=== PATIENT | male | born 1980 | race Caucasian/White ===

== ENCOUNTER 2019-09-05 20:20 | Observation (INO) | payer BC, SELFPAY ==
[2019-09-05 20:21] VITALS: BP 126/76; PULSE 76; RESP 16; TEMP 36.9; O2SAT 94; BMI 39.4
--- NOTE | 2019-09-05 20:50 | CT_ITS ---
HISTORY: SEVERE BACK PAIN AND SPASMS AFTER HEARING A POP ADDITIONAL HISTORY: None provided COMPARISON: None TECHNIQUE: Axial, coronal and sagittal noncontrast CT images of the lumbar spine. 2D reconstructions were reviewed to aid in evaluation of the lumbar spine. A radiation dose optimization technique was utilized for this scan. Number of images including paperwork: [id number] FINDINGS: BONES: No acute fracture. Spondylolysis is noted at L5 on the right with some sclerosis in this region on the left suggesting the possibility of a healed defect. Bifid spinous process of L5 also noted. No suspicious bone lesion. VERTEBRAL ALIGNMENT: No traumatic subluxation. DISCS AND JOINTS: Mild to space narrowing at L5-S1. Mild disc bulging noted at L3-4, L4-5 and L5-S1. Facet arthropathy and some ligamentous hypertrophy is noted. SPINAL CANAL AND FORAMINA: Moderate central canal stenosis at L4-5. SOFT TISSUES: No paraspinous soft tissue swelling. VISUALIZED CHEST AND/OR ABDOMEN: Unremarkable. CT/Spine Lumbar without Contrast IMPRESSION: 1. No acute osseous abnormality. 2. L5 spondylolysis without significant spondylolisthesis. 3. Lumbar spondylosis with spinal stenosis at L4-5. MRI could better evaluate spinal soft tissues if clinically warranted. Individualized dose optimization techniques were used for this CT. at 2234 Reported and signed by: Debbie Guzmán MD Electronically Signed: Debbie Guzmán MD at 22:34 EST Tel , Service support ,
[2019-09-05 20:59] VITALS: BP 138/95; PULSE 70; RESP 16; O2SAT 95
[2019-09-05 21:29] LABS: Absolute Lymphocyte Count 3.15 X10^3/uL (0.83-4.51); Absolute Neutrophil Count 6.7 X10^3/uL (2.0-7.7); Basophil# 0.05 X10^3/uL; Basophil% 0.5 % (0-1); Eosinophil# 0.07 X10^3/uL; Eosinophils% 0.6 % (0-5); Hematocrit 41.4 % (40-54); Hemoglobin 13.8 g/dL (13.0-16.5); Lymphocyte # 3.15 X10^3/ul (4.0); Lymphocyte % 29.1 % (19-41); Mean Corp Hgb Conc 33.3 g/dL (32-36); Monocyte# 0.84 X10^3/uL; Monocyte% 7.7 % (0-10); NRBC Flagged by Analyzer 0 % (0-5); Neutrophil # 6.69 X10^3/uL (2.7-7.7); Neutrophil % 61.7 % (47-70); Platelet Count 319 K/mm3 (150-450); RBC Distribution Width CV 12.7 % (11.6-14.6); RBC Distribution Width SD 41.9 fl (35.1-43.9); White Blood Count 10.8 K/mm3 (4.4-11.0)
[2019-09-05 21:39] LABS: Anion Gap 5 (5-15); BUN 16 mg/dL (7-18); BUN/Creat Ratio 14.7 RATIO (10-20); Calcium,Total 9.5 mg/dL (8.5-10.1); Chloride 105 mmol/L (98-107); Creatinine, Serum 1.09 mg/dL (0.70-1.30); EST Glomerular Filtration Rate 80 mL/min (>60); Est Glom Filt Rate - Afr Amer 96 mL/min (>60); Estimated Creatinine Clearance 93.95 ml/min; Glucose 95 mg/dL (74-106); Sodium Level 140 mmol/L (136-145)
[2019-09-05] MEDS: diazePAM 5 MG Tablet PO (22:19)
[2019-09-05] MEDS: HYDROmorphone 1 MG/ML Syringe IV (22:19)
--- NOTE | 2019-09-05 22:59 | PCM.HP.STD ---
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 He also notes transient RLE radicular pain. Work-up in the ED included T 98.5, heart rate 76, BP 126/79, respiratory rate 16, 94% on room air, unremarkable CBC, unremarkable BMP, lumbar spine CT with no acute osseous abnormality with L5 spondylosis without significant spondylolisthesis, lumbar spondylosis with spinal stenosis at L4-L5. In the ED patient administered Valium 5 mg p.o. x1 as well as Dilaudid 1 mg IV x1. Past Medical History Past Medical History (Chronic Problems): Chronic Problems AAA (abdominal aortic aneurysm) (Chronic) Obesity (BMI 30-39.9) (Chronic) Hypertension (Chronic) Former tobacco use (Chronic) Allergies No Known Allergies Allergy (Verified 09/05/19 20:26) Home Medications: Ambulatory Orders Medication Instructions Recorded Clopidogrel Bisulfate [Clopidogrel] 75 mg DAILY 09/05/19 Losartan Potassium 50 mg DAILY 09/05/19 Surgical History: - - Mcneil teeth extraction. Psychiatric History: No pertinent psych hx Lives: Spouse/ Significant Other Smoking Status: Former smoker - Patient quit cigarette tobacco usage approximately 2 years prior to current presentation, prior to this 1/2 pack/day cigarette tobacco usage. Tobacco Use: Non-smoker Alcohol: Occasional Drugs: None - *Family History Maternal History Items: - - Patient denies any market maternal or paternal family history including heart disease, diabetes or cancer and notes that they do not take any medications. Paternal History Items: - - Patient denies any market maternal or paternal family history including heart disease, diabetes or cancer and notes that they do not take any medications. He does admit that his father is an alcoholic. Review of Systems Constitutional: Reports: Anorexia, Malaise, Weakness, Fatigue. Denies: Chills, Fever, Weight Change HEENT: Denies: Head Aches, Sinus Congestion, Sinus Drainage Cardiovascular: Denies: Chest Pain, Palpitations Respiratory: Denies: Cough, Shortness of breath at rest, Sputum production Gastrointestinal: Denies: Abdominal Pain, Nausea, Vomiting Genitourinary: Denies: Dysuria Musculoskeletal: Reports: Back Pain, Joint Pain, Leg Pain. Denies: Joint Tenderness Skin: Denies: Rash, Wounds Neurological: Denies: Numbness, Tingling, Focal weakness Psychiatric: Denies: Anxiety, Depression, Homicidal Ideations, Suicidal Ideations Hematologic/ Lymphatic: Denies: Easy Bruising, Easy Bleeding VTE Information - Inpt Only VTE Present on Admission: No VTE Mechan Device Prophylaxis: SCD's VTE Pharm Prophylaxis ordered?: Yes Patient Problems: Active and Suspected Problems Intractable low back pain (Acute) Subjective: Laying in the ED bed, uncomfortable, periods of spasms with acute 10 of 10 severe pain. Objective: Physical Examination: General: awake, alert, oriented x 3 and cooperative, laying in the ED bed, intermittent periods of severe paraspinous lumbar spasms and pain. Skin: normal color, turgor, no icterus, cyanosis. HEENT: AT/NC, EOMI, PERRLA, mildly dry MM, no carotid bruits or JVD noted. Lungs: CTA bilaterally, moderate effort, mild decrease BL bases, no rales, ronchi or wheezing. Heart: Regular rate and rhythm; no gallop, rub audible. Abdomen: soft, obese, NTTP, ND, normal BS, no HSM. Extremities: no cyanosis, clubbing, or edema, discomfort with palpation of the paraspinous and especially right sacroiliac region, difficulty even performing straight leg raise secondary to discomfort. Neurological: patient awake, alert, oriented x 3; cognitive function intact; pupils equally reactive to light and accomodation; cranial nerves II-XII grossly normal, moving all 4 extremities although extremely limited secondary to severe lumbar region discomfort, no pain with palpation of the spine, primarily paraspinous and notably right greater than left sacroiliac region, strength severely globally Liv secondary to acute pain. Psychiatric: affect appears strange, uncomfortable, no acute evidence of depressive or anxiety feelings. - Physical Exam Vitals/I&O's: Vital Signs Temp Pulse Resp BP Pulse Ox 98.5 F 70 16 138/95 H 95 09/05/19 20:21 09/05/19 20:59 09/05/19 20:59 09/05/19 20:59 09/05/19 20:59 Oxygen Delivery Method Room Air Weight: 275 lb 5.718 oz Body Mass Index (BMI) 39.4 Laboratory Results 09/05/19 21:10: WBC 10.8, RBC 4.60, Hgb 13.8, Hct 41.4, MCV 90.0, MCH 30.0, MCHC 33.3, RDW Std Deviation 41.9, RDW Coeff of Jorge 12.7, Plt Count 319, MPV 9.0, Immature Gran % (Auto) 0.400, Neut % (Auto) 61.7, Lymph % (Auto) 29.1, [place] % (Auto) 7.7, Eos % (Auto) 0.6, Baso % (Auto) 0.5, Absolute Neuts (auto) 6.7, Absolute Lymphs (auto) 3.15, Nucleated RBC % 0 09/05/19 21:10: Sodium 140, Potassium 4.0, Chloride 105, Carbon Dioxide 30.0, Anion Gap 5, BUN 16, Creatinine 1.09, Estim Creat Clear Calc 93.95, Est GFR (MDRD) Af Amer 96, Est GFR (MDRD) Non-Af 80, BUN/Creatinine Ratio 14.7, Glucose 95, Calcium 9.5 Assessment/Plan All Active Problems Intractable low back pain (Acute) The patient is a 38 y/o M w/ PMHx: Obesity, HTN, 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 1. Acute Intractable Back Pain on chronic: Will admit to MS, maintain on fall precautions, frequent positioning, po/IV pain regimen, initiate medrol dose pack, zanaflex, gabapentin TID with hold for sedation, toradol x 5 scheduled doses, anti-emetics, bowel regimen. Will consult PT and OT for evaluation. If ongoing intractable pain may consider MRI. 2. 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 Not on statin, defer to outpatient. 3. Hypertension: Continue home regimen including lisinopril once regimen clarified, PRN hydralazine. 4. Obesity: Weight loss and lifestyle changes encouraged. 5. Former tobacco use: Encouraged continued tobacco cessation. 6. DVT Prophylaxis: SCDS, lovenox given immobility. Code Visit Inpatient E&M: 87411 Init Hosp L2
[2019-09-05 23:00] VITALS: BP 134/99; PULSE 85; RESP 16; O2SAT 95
--- NOTE | 2019-09-05 23:00 | ED.DCSUM_ITS ---
- ER Visit Summary Date of Service: 09/05/19 Chief Complaint: Back pain History of Present Illness: The patient is a 38 M [presents to the ER with complaint of back pain that started prior to arrival in the emergency department. Patient states that he just purchased a new snowmobile and was working on a carburetor. Patient was standing kind of bent over and had sudden onset of severe excruciating pain in his low back. Patient states that he felt a pop in his back. Initially he felt like he had some discomfort into his right leg. But that seems to have mostly resolved. Patient fell to the ground and was unable to get up afterwards. EMS had to bring him in. 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 Patient denies any weakness in extremities. He denies any paresthesias currently. He describes intermittent severe spasms. He denies any abdominal pain. Patient does not have a history of herniated disks. He is not had any back surgeries.] Physical Examination: [HEENT-PERRLA, EOMI. Cranial nerves II through XII grossly intact. TMs clear. Mucous membranes moist. No adenopathy. Cardiovascular-regular rate and rhythm without murmur or ectopy Lungs-clear to auscultation, chest wall stable without crepitus or subcu emphysema Abdomen-normoactive bowel sounds, soft, nontender, no rebound or rigidity, no peritoneal signs. Back exam-patient has tenderness palpation over the lower lumbar spine in the midline. Patient has some mild diffuse tenderness over the paraspinal musculature in the lumbar spine. Patient has negative straight leg raises. Deep tendon reflexes are plus 2 out of 4 bilaterally at the patella and Achilles. Patient has normal 5 extension. Extremities-intact ?4, normal range of motion, normal pulses, atraumatic] Test Results: [Patient has CBC with differential that was normal. Chemistries unremarkable. CT scan of the lumbar spine showed lumbar spondylosis with spinal stenosis at L4-5. No fractures noted.] Emergency Department Course and Treatment: [Patient had received 100 mcg of fentanyl by EMS on arrival. Patient eventually required a milligram of Dilaudid and Valium 5 mg. He continues to complain of severe pain with movement and he is unable to ambulate at this time because of the pain in his low back.] Treatment Plan: [Admit for pain management and possible further imaging such as MRI if symptoms do not improve.] Disposition: [Admit] Impression: [Intractable back pain] This note was generated with [employer] dictation software. It may contain incorrect words, spelling, and punctuation that were not noted in review of the chart prior to signing ED Disposition - Plan for ED Patient: Referrals: Anton Hilton Chi, MD [Primary Care Provider] -
[2019-09-05] MEDS: HYDROmorphone 0.5 MG/0.5 ML SYRINGE IV (23:39)
[2019-09-06 00:08] VITALS: BP 128/84; PULSE 76; RESP 16; O2SAT 95
[2019-09-06 00:29] VITALS: BMI 35.0
[2019-09-06 00:36] VITALS: BP 122/74; PULSE 77; RESP 16; TEMP 37; O2SAT 95
[2019-09-06 00:49] VITALS: BMI 35.0
[2019-09-06] MEDS: 0.9% Saline Lock 10 ML Syringe IV (01:20)
[2019-09-06] MEDS: 0.9% Normal Saline 1,000 ML 100 ML IV ×2 (01:21→12:09)
[2019-09-06] MEDS: Clopidogrel Bisulfate 75 MG Tablet PO ×2 (01:24→10:59)
[2019-09-06] MEDS: Gabapentin 100 MG Capsule PO ×3 (01:24→11:05)
[2019-09-06] MEDS: tiZANidine HCl 2 MG Tablet PO ×3 (01:24→15:25)
[2019-09-06] MEDS: Losartan Potassium 50 MG Tablet PO ×2 (01:24→11:00)
[2019-09-06] MEDS: Pantoprazole Sodium 20 MG Tablet PO ×2 (01:24→10:58)
[2019-09-06] MEDS: Ketorolac 30 MG/ML Syringe IV ×3 (01:25→15:24)
[2019-09-06 06:19] VITALS: BP 110/63; PULSE 68; RESP 16; TEMP 36.4; O2SAT 96
[2019-09-06 07:01] LABS: Absolute Lymphocyte Count 3.67 X10^3/uL (0.83-4.51); Absolute Neutrophil Count 4.1 X10^3/uL (2.0-7.7); Basophil# 0.05 X10^3/uL; Basophil% 0.6 % (0-1); Eosinophil# 0.13 X10^3/uL; Eosinophils% 1.5 % (0-5); Hematocrit 40.3 % (40-54); Hemoglobin 13.3 g/dL (13.0-16.5); Lymphocyte # 3.67 X10^3/ul (4.0); Lymphocyte % 41.6 % (19-41); Mean Corpuscular Hgb 29.8 pg (27.0-32.0); Mean Corpuscular Volume 90.4 fL (80-94); Mean Platelet Vol. 9.3 fl (6.2-12.0); Monocyte# 0.81 X10^3/uL; Monocyte% 9.2 % (0-10); NRBC Flagged by Analyzer 0 % (0-5); Neutrophil # 4.14 X10^3/uL (2.7-7.7); Neutrophil % 46.8 % (47-70); Platelet Count 322 K/mm3 (150-450); RBC Distribution Width CV 12.8 % (11.6-14.6); Red Blood Count 4.46 M/mm3 (4.6-6.2); White Blood Count 8.8 K/mm3 (4.4-11.0)
[2019-09-06 07:17] LABS: Anion Gap 5 (5-15); BUN 15 mg/dL (7-18); BUN/Creat Ratio 14.4 RATIO (10-20); Calcium,Total 8.7 mg/dL (8.5-10.1); Chloride 105 mmol/L (98-107); Creatinine, Serum 1.04 mg/dL (0.70-1.30); EST Glomerular Filtration Rate 84 mL/min (>60); Est Glom Filt Rate - Afr Amer 102 mL/min (>60); Estimated Creatinine Clearance 101.57 ml/min; Glucose 101 mg/dL (74-106); Potassium 3.4 mmol/L (3.5-5.1); Sodium Level 139 mmol/L (136-145)
[2019-09-06] MEDS: MethylPREDNISolone DosePak 4 MG BOX PO ×2 (07:48→11:05)
[2019-09-06 07:55] VITALS: BP 131/82; PULSE 64; RESP 16; TEMP 36.5; O2SAT 97
--- NOTE | 2019-09-06 07:58 | PCM.PN.HOSP ---
Patient Problems: Active and Suspected Problems Intractable low back pain (Acute) Reason for Visit: Follow-up intractable back pain Subjective: Patient is a 38-year-old gentleman with a BMI of 35 with a history of chronic back pain presented with worsening pain Objective: GENERAL: cooperative appears to be in some distress HEENT: Atraumatic; EYES; Anicteric, Normal Conjunctiva NECK; supple, normal thyroid, RESPIRATORY: Diminished to auscultation CARDIOVASCULAR: Regular S1 S2, GI: soft, normoactive bowel sounds, : No Renal angle tenderness; EXTREMITIES: No edema, no clubbing, NEURO: Awake; no lateralizing signs. SKIN: No Rash PSYCH; Flat affect Vitals/I&O's: Vital Signs Temp Pulse Resp BP Pulse Ox 97.7 F L 64 16 131/82 H 97 09/06/19 07:55 09/06/19 07:55 09/06/19 07:55 09/06/19 07:55 09/06/19 07:55 Oxygen Delivery Method Room Air Weight: 113.9 kg Body Mass Index (BMI) 35.0 Intake and Output for Last 24 Hours 09/04/19 09/05/19 09/06/19 23:59 23:59 23:59 Intake Total 300 / 300 Balance 300 / 300 Laboratory Results 09/05/19 21:10: WBC 10.8, RBC 4.60, Hgb 13.8, Hct 41.4, MCV 90.0, MCH 30.0, MCHC 33.3, RDW Std Deviation 41.9, RDW Coeff of Jorge 12.7, Plt Count 319, MPV 9.0, Immature Gran % (Auto) 0.400, Neut % (Auto) 61.7, Lymph % (Auto) 29.1, [place] % (Auto) 7.7, Eos % (Auto) 0.6, Baso % (Auto) 0.5, Absolute Neuts (auto) 6.7, Absolute Lymphs (auto) 3.15, Nucleated RBC % 0 09/05/19 21:10: Sodium 140, Potassium 4.0, Chloride 105, Carbon Dioxide 30.0, Anion Gap 5, BUN 16, Creatinine 1.09, Estim Creat Clear Calc 93.95, Est GFR (MDRD) Af Amer 96, Est GFR (MDRD) Non-Af 80, BUN/Creatinine Ratio 14.7, Glucose 95, Calcium 9.5 09/06/19 05:45: WBC 8.8, RBC 4.46 L, Hgb 13.3, Hct 40.3, MCV 90.4, MCH 29.8, MCHC 33.0, RDW Std Deviation 42.0, RDW Coeff of Jorge 12.8, Plt Count 322, MPV 9.3, Immature Gran % (Auto) 0.300, Neut % (Auto) 46.8 L, Lymph % (Auto) 41.6 H, [place] % (Auto) 9.2, Eos % (Auto) 1.5, Baso % (Auto) 0.6, Absolute Neuts (auto) 4.1, Absolute Lymphs (auto) 3.67, Nucleated RBC % 0 09/06/19 05:45: Sodium 139, Potassium 3.4 L, Chloride 105, Carbon Dioxide 29.0, Anion Gap 5, BUN 15, Creatinine 1.04, Estim Creat Clear Calc 101.57, Est GFR (MDRD) Af Amer 102, Est GFR (MDRD) Non-Af 84, BUN/Creatinine Ratio 14.4, Glucose 101, Calcium 8.7 Current Medications Acetaminophen (Tylenol) 650 mg PO Q6H PRN PRN PRN Reason: Pain Score 1-3/Temp > 100.7 F Al Hydroxide/Mg Hydroxide (Mylanta Ii) 30 ml PO Q6H PRN PRN PRN Reason: Gastric Burning Albuterol Sulfate (Ventolin Aerosols) 2.5 mg INHALATION Q2H PRN PRN PRN Reason: Shortness of Breath/Wheezing Clopidogrel Bisulfate (Plavix) 75 mg PO DAILY [facility] Last Admin: 09/06/19 01:24 Dose: 75 mg Documented by: Dextrose (D50w Syringe) 0 gm IV X1 PRN; Protocol PRN Reason: Hypoglycemia Enoxaparin Sodium (Lovenox) 40 mg SC DAILY [facility] Gabapentin (Neurontin) 100 mg PO TIDCM [facility] Last Admin: 09/06/19 07:48 Dose: 100 mg Documented by: Glucagon () 1 mg IM .X1 PRN PRN Reason: Hypoglycemia Guaifenesin (Robitussin) 20 ml PO Q4H PRN PRN PRN Reason: COUGH Hydromorphone HCl (Dilaudid Inj) 1 mg IV Q4H PRN PRN PRN Reason: Pain Score 6-10/10 Sodium Chloride () 1,000 mls @ 100 mls/hr IV .Q10H [facility] Last Admin: 09/06/19 01:21 Dose: 100 mls/hr Documented by: Ketorolac Tromethamine (Toradol) 30 mg IV Q8 [facility] Stop: 09/07/19 06:01 Last Admin: 09/06/19 06:20 Dose: 30 mg Documented by: Losartan Potassium (Cozaar) 50 mg PO DAILY [facility] Last Admin: 09/06/19 01:24 Dose: 50 mg Documented by: Magnesium Hydroxide (Milk Of Magnesia) 30 ml PO DAILY PRN PRN PRN Reason: Constipation Methylprednisolone (Medrol Dosepak) 8 mg PO 0800 [facility]; Taper Stop: 09/11/19 08:59 Last Admin: 09/06/19 07:48 Dose: 8 mg Documented by: Ondansetron HCl (Zofran) 4 mg IV Q8H PRN PRN PRN Reason: NAUSEA/VOMITING Oxycodone HCl (Oxyir) 10 mg PO Q4H PRN PRN PRN Reason: Pain Score 4-5/10 Pantoprazole Sodium (Protonix) 20 mg PO BID [facility] Last Admin: 09/06/19 01:24 Dose: 20 mg Documented by: Prochlorperazine Edisylate (Compazine Iv) 5 mg IV Q4H PRN PRN PRN Reason: Breakthrough nausea/vomiting Sodium Chloride () 10 - 40 ml IV UD PRN PRN Reason: SALINE FLUSH Last Admin: 09/06/19 01:20 Dose: 20 ml Documented by: Temazepam (Restoril) 15 mg PO QHS PRN PRN PRN Reason: INSOMNIA Throat Lozenges (Cepacol Sore Throat Lozenge) 1 lozenge MUCOUS MEM Q2H PRN PRN PRN Reason: Sore throat or cough Tizanidine HCl (Zanaflex) 2 mg PO Q8 [facility] Last Admin: 09/06/19 06:20 Dose: 2 mg Documented by: STROKE Vital Signs/Narrative: Vital Signs Temp Pulse Resp BP Pulse Ox 09/06/19 07:55 97.7 F L 64 16 131/82 H 97 09/06/19 06:19 97.6 F L 68 16 110/63 96 Medical Necessity - Tobacco Use Smoking Status: Former smoker Tobacco Use: Non-smoker Assessment/Plan All Active Problems Intractable low back pain (Acute) Patient is a 38-year-old gentleman with a BMI of 35 with a history of chronic back pain presented with worsening pain 1. Acute intractable back pain ?In the patient with underlying chronic back pain the studies obtained in the emergency department demonstrated lumbar spondylosis with spinal stenosis at L4-5. No fractures noted. Admitted to regular nursing floor managed with muscle relaxant Neurontin as well as Toradol. 2. Essential hypertension ?Patient is on lisinopril did continue 3. Obesity with BMI of 35.0 ?Weight loss advised 4. 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 DVT prophylaxis ?Lovenox Clinical Impression(s) from Imaging Studies Lumbar Spine CT 09/05/19 20:50 IMPRESSION: 1. No acute osseous abnormality. 2. L5 spondylolysis without significant spondylolisthesis. 3. Lumbar spondylosis with spinal stenosis at L4-5. MRI could better evaluate spinal soft tissues if clinically warranted. Individualized dose optimization techniques were used for this CT. at 2234 Reported and signed by: Debbie Guzmán MD Electronically Signed: Debbie Guzmán MD at 22:34 EST Tel , Service support , Code Visit Inpatient E&M: [id number] Subs Hosp L2
[2019-09-06] MEDS: Enoxaparin 40 MG/0.4 ML Syringe SC (10:59)
--- NOTE | 2019-09-06 11:11 | CPS ---
incentive started by nursing
[2019-09-06 11:12] VITALS: O2SAT 95
[2019-09-06 12:55] VITALS: BP 117/73; PULSE 71; RESP 16; TEMP 36.9; O2SAT 94
--- NOTE | 2019-09-06 14:52 | DCINST_ITS ---
- Discharge Diagnoses Current Active Problems: Current Active and Chronic Problems Intractable low back pain (Acute) AAA (abdominal aortic aneurysm) (Chronic) Obesity (BMI 30-39.9) (Chronic) Hypertension (Chronic) Former tobacco use (Chronic) You will use the following diet at home:: No restrictions Your food should be the consistency of: Regular Discharge Activity: May not drive while taking narcotic pain medications. Allergies/Adverse Reactions: Allergies No Known Allergies Allergy (Verified 09/05/19 20:26) Medications to take at Discharge Clopidogrel Bisulfate [Clopidogrel] 75 mg PO DAILY 09/05/19 Losartan Potassium 50 mg PO DAILY 09/05/19 Acetaminophen [Tylenol Tablet] 650 mg PO Q6H PRN PRN tablet 09/06/19 Oxycodone [Oxyir] 10 mg PO Q6H PRN PRN 4 Days #16 tablet 09/06/19 Prednisone 20 mg PO BID #10 tab 09/06/19 Senna/Docusate Sodium [Senokot-S] 1 tab PO BID #14 tab 09/06/19 Tizanidine HCl [Zanaflex] 2 mg PO Q8 #15 tab 09/06/19 The following prescriptions were given: Oxycodone [Oxyir] 10 mg PO Q6H PRN PRN 4 Days #16 tablet PRN Reason: Pain Score 4-5/10 Transmission Status: Received by [facility]/pharmacy #[id number] Prednisone 20 mg PO BID #10 tab Transmission Status: Pending to [facility]pharmacy [facility][id number] Senna/Docusate Sodium [Senokot-S] 1 tab PO BID #14 tab Transmission Status: Pending to [facility]acy [facility][id number] Tizanidine HCl [Zanaflex] 2 mg PO Q8 #15 tab Transmission Status: Pending to [facility]pharmacy #[id number] Primary Care Physician: Anton Hilton Chi, MD [Primary Care Provider] - Please follow up with your Primary Care Physician in: In 2 to 3 days Test Results: Test results from this visit will be discussed in further detail at your follow- up appointment, if applicable. Proposed Discharge Date: 09/06/19
--- NOTE | 2019-09-06 14:55 | DS.PCM_ITS ---
Discharge Date and Diagnosis - Problem List Patient Problems: Active and Suspected Problems Intractable low back pain (Acute) Date of Admission: 09/05/19 Date of Discharge: 09/06/19 - Primary Discharge Diagnosis Active and Suspected Problems Intractable low back pain (Acute) - Secondary Discharge Diagnosis Chronic Problems AAA (abdominal aortic aneurysm) (Chronic) Obesity (BMI 30-39.9) (Chronic) Hypertension (Chronic) Former tobacco use (Chronic) Hospital Course and Treatment Imaging Results: Clinical Impression(s) from Imaging Studies Lumbar Spine CT 09/05/19 20:50 IMPRESSION: 1. No acute osseous abnormality. 2. L5 spondylolysis without significant spondylolisthesis. 3. Lumbar spondylosis with spinal stenosis at L4-5. MRI could better evaluate spinal soft tissues if clinically warranted. Individualized dose optimization techniques were used for this CT. at 2234 Reported and signed by: Debbie Guzmán MD Electronically Signed: Debbie Guzmán MD at 22:34 EST Tel , Service support , Summary of Care Provided: Patient is a 38-year-old gentleman with a BMI of 35 with a history of chronic back pain presented with worsening pain 1. Acute intractable back pain ?In the patient with underlying chronic back pain the studies obtained in the emergency department demonstrated lumbar spondylosis with spinal stenosis at L4-5. No fractures noted. Admitted to regular nursing floor managed with muscle relaxant Neurontin as well as Toradol. ?Patient was expected to stay for at least 2 midnight however he requested to be discharged this 1 day following his admission. Prescription was written for steroids, muscle relaxants as well as oxycodone. Patient was instructed to follow-up with his PCP within 2 to 3 days for subsequent care 2. Essential hypertension ?Patient is on lisinopril did continue 3. Obesity with BMI of 35.0 ?Weight loss advised 4. 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 DVT prophylaxis ?Lovenox Patient Problems: Active and Suspected Problems Intractable low back pain (Acute) - Physical Exam Vitals/I&O's: Vital Signs Temp Pulse Resp BP Pulse Ox 97.7 F L 64 16 131/82 H 95 09/06/19 07:55 09/06/19 07:55 09/06/19 07:55 09/06/19 07:55 09/06/19 11:12 Oxygen Delivery Method Room Air Weight: 113.9 kg Body Mass Index (BMI) 35.0 Intake and Output for Last 24 Hours 09/04/19 09/05/19 09/06/19 23:59 23:59 23:59 Intake Total 1799 Balance 1799 General: Alert HEENT: Atraumatic Neck: Supple Neurological: Neuro grossly intact Psych/Mental Status: Flat Affect Laboratory Results 09/05/19 21:10: WBC 10.8, RBC 4.60, Hgb 13.8, Hct 41.4, MCV 90.0, MCH 30.0, MCHC 33.3, RDW Std Deviation 41.9, RDW Coeff of Jorge 12.7, Plt Count 319, MPV 9.0, Immature Gran % (Auto) 0.400, Neut % (Auto) 61.7, Lymph % (Auto) 29.1, [place] % (Auto) 7.7, Eos % (Auto) 0.6, Baso % (Auto) 0.5, Absolute Neuts (auto) 6.7, Absolute Lymphs (auto) 3.15, Nucleated RBC % 0 09/05/19 21:10: Sodium 140, Potassium 4.0, Chloride 105, Carbon Dioxide 30.0, Anion Gap 5, BUN 16, Creatinine 1.09, Estim Creat Clear Calc 93.95, Est GFR (MDRD) Af Amer 96, Est GFR (MDRD) Non-Af 80, BUN/Creatinine Ratio 14.7, Glucose 95, Calcium 9.5 09/06/19 05:45: WBC 8.8, RBC 4.46 L, Hgb 13.3, Hct 40.3, MCV 90.4, MCH 29.8, MCHC 33.0, RDW Std Deviation 42.0, RDW Coeff of Jorge 12.8, Plt Count 322, MPV 9.3, Immature Gran % (Auto) 0.300, Neut % (Auto) 46.8 L, Lymph % (Auto) 41.6 H, [place] % (Auto) 9.2, Eos % (Auto) 1.5, Baso % (Auto) 0.6, Absolute Neuts (auto) 4.1, Absolute Lymphs (auto) 3.67, Nucleated RBC % 0 09/06/19 05:45: Sodium 139, Potassium 3.4 L, Chloride 105, Carbon Dioxide 29.0, Anion Gap 5, BUN 15, Creatinine 1.04, Estim Creat Clear Calc 101.57, Est GFR (MDRD) Af Amer 102, Est GFR (MDRD) Non-Af 84, BUN/Creatinine Ratio 14.4, Glucose 101, Calcium 8.7 Current Medications Acetaminophen (Tylenol) 650 mg PO Q6H PRN PRN PRN Reason: Pain Score 1-3/Temp > 100.7 F Al Hydroxide/Mg Hydroxide (Mylanta Ii) 30 ml PO Q6H PRN PRN PRN Reason: Gastric Burning Albuterol Sulfate (Ventolin Aerosols) 2.5 mg INHALATION Q2H PRN PRN PRN Reason: Shortness of Breath/Wheezing Clopidogrel Bisulfate (Plavix) 75 mg PO DAILY [facility] Last Admin: 09/06/19 10:59 Dose: 75 mg Documented by: Dextrose (D50w Syringe) 0 gm IV X1 PRN; Protocol PRN Reason: Hypoglycemia Enoxaparin Sodium (Lovenox) 40 mg SC DAILY [facility] Last Admin: 09/06/19 10:59 Dose: 40 mg Documented by: Gabapentin (Neurontin) 100 mg PO TIDCM [facility] Last Admin: 09/06/19 11:05 Dose: 100 mg Documented by: Glucagon () 1 mg IM .X1 PRN PRN Reason: Hypoglycemia Guaifenesin (Robitussin) 20 ml PO Q4H PRN PRN PRN Reason: COUGH Hydromorphone HCl (Dilaudid Inj) 1 mg IV Q4H PRN PRN PRN Reason: Pain Score 6-10/10 Sodium Chloride () 1,000 mls @ 100 mls/hr IV .Q10H [facility] Last Admin: 09/06/19 12:09 Dose: 100 mls/hr Documented by: Ketorolac Tromethamine (Toradol) 30 mg IV Q8 [facility] Stop: 09/07/19 06:01 Last Admin: 09/06/19 06:20 Dose: 30 mg Documented by: Losartan Potassium (Cozaar) 50 mg PO DAILY [facility] Last Admin: 09/06/19 11:00 Dose: 50 mg Documented by: Magnesium Hydroxide (Milk Of Magnesia) 30 ml PO DAILY PRN PRN PRN Reason: Constipation Methylprednisolone (Medrol Dosepak) 4 mg PO 1200,1700 [facility]; Taper Stop: 09/11/19 08:59 Last Admin: 09/06/19 11:05 Dose: 4 mg Documented by: Ondansetron HCl (Zofran) 4 mg IV Q8H PRN PRN PRN Reason: NAUSEA/VOMITING Oxycodone HCl (Oxyir) 10 mg PO Q4H PRN PRN PRN Reason: Pain Score 4-5/10 Pantoprazole Sodium (Protonix) 20 mg PO BID [facility] Last Admin: 09/06/19 10:58 Dose: 20 mg Documented by: Prochlorperazine Edisylate (Compazine Iv) 5 mg IV Q4H PRN PRN PRN Reason: Breakthrough nausea/vomiting Sodium Chloride () 10 - 40 ml IV UD PRN PRN Reason: SALINE FLUSH Last Admin: 09/06/19 01:20 Dose: 20 ml Documented by: Temazepam (Restoril) 15 mg PO QHS PRN PRN PRN Reason: INSOMNIA Throat Lozenges (Cepacol Sore Throat Lozenge) 1 lozenge MUCOUS MEM Q2H PRN PRN PRN Reason: Sore throat or cough Tizanidine HCl (Zanaflex) 2 mg PO Q8 [facility] Last Admin: 09/06/19 06:20 Dose: 2 mg Documented by: Discharge Diet: No Restrictions Discharge Activity: May not drive while taking narcotic pain medications. Home Medications: Medications to take at Discharge Clopidogrel Bisulfate [Clopidogrel] 75 mg PO DAILY 09/05/19 Losartan Potassium 50 mg PO DAILY 09/05/19 Acetaminophen [Tylenol Tablet] 650 mg PO Q6H PRN PRN tablet 09/06/19 Oxycodone [Oxyir] 10 mg PO Q6H PRN PRN 4 Days #16 tablet 09/06/19 Prednisone 20 mg PO BID #10 tab 09/06/19 Senna/Docusate Sodium [Senokot-S] 1 tab PO BID #14 tab 09/06/19 Tizanidine HCl [Zanaflex] 2 mg PO Q8 #15 tab 09/06/19 Following Prescrptions Were Given to Patient: Oxycodone [Oxyir] 10 mg PO Q6H PRN PRN 4 Days #16 tablet PRN Reason: Pain Score 4-5/10 Transmission Status: Received by [id number] Prednisone 20 mg PO BID #10 tab Transmission Status: Pending to [id number] Senna/Docusate Sodium [Senokot-S] 1 tab PO BID #14 tab Transmission Status: Pending to [id number] Tizanidine HCl [Zanaflex] 2 mg PO Q8 #15 tab Transmission Status: Pending to [id number] Primary Care Physician: Anton Hilton Chi, MD [Primary Care Provider] - Please follow up with your Primary Care Physician in: In 2 to 3 days Disposition: Home Minutes spent on discharge:: 40 Patient Condition:: Stable Medical Necessity - Tobacco Use Smoking Status: Former smoker Tobacco Use: Non-smoker Meaningful Use Info Meaningful Use Diagnoses (Choose all that apply): None applicable Code Visit Inpatient E&M: 88948 Disch Hosp
== END 2019-09-06 15:40 | disposition home or self-care (01) ==
LOC: ED 23:28 → MS3 09-06 07:07
PROVIDERS: Admitting Provider Family Medicine; Emergency Provider Emergency Medicine; PCP Family Medicine Geriatric Medicine; Visit Provider Internal Medicine
DX: M47.816 Spondylosis without myelopathy or radiculopathy, lumbar region (principal); I10 Essential (primary) hypertension; E66.9 Obesity, unspecified; Z79.899 Other long term (current) drug therapy; Z87.891 Personal history of nicotine dependence; Z79.02 Long term (current) use of antithrombotics/antiplatelets; Z68.35 Body mass index [BMI] 35.0-35.9, adult; Z71.3 Dietary counseling and surveillance
CPT/HCPCS: 36415; 72131; 80048; 85025; 96361; 96372; 96374; 96375; 96376; 97162; 97166; 99218; 99251; 99285; J7030; A4216; G0378; G0463

== ENCOUNTER → 2019-09-10 15:06 | Outpatient (CLI) | payer BC, SELFPAY ==
[2019-09-06 00:29] VITALS: BMI 35.0
[2019-09-10 17:00] LABS: Absolute Lymphocyte Count 3.79 X10^3/uL (0.83-4.51); Absolute Neutrophil Count 10.6 X10^3/uL (2.0-7.7); Basophil# 0.06 X10^3/uL; Basophil% 0.4 % (0-1); Eosinophil# 0.01 X10^3/uL; Eosinophils% 0.1 % (0-5); Hematocrit 42.2 % (40-54); Hemoglobin 14.1 g/dL (13.0-16.5); Lymphocyte # 3.79 X10^3/ul (4.0); Lymphocyte % 24.5 % (19-41); Mean Corp Hgb Conc 33.4 g/dL (32-36); Mean Corpuscular Volume 89.8 fL (80-94); Mean Platelet Vol. 9.4 fl (6.2-12.0); Monocyte# 0.88 X10^3/uL; Monocyte% 5.7 % (0-10); NRBC Flagged by Analyzer 0 % (0-5); Neutrophil # 10.62 X10^3/uL (2.7-7.7); Neutrophil % 68.4 % (47-70); Platelet Count 374 K/mm3 (150-450); RBC Distribution Width CV 12.8 % (11.6-14.6); RBC Distribution Width SD 42.3 fl (35.1-43.9); White Blood Count 15.5 K/mm3 (4.4-11.0)
[2019-09-10 17:32] LABS: AST(SGOT) 11 U/L (15-37); Alanine Aminotransfer ALT/SGPT 47 U/L (16-61); Albumin, Serum 4.1 g/dL (3.2-5.0); Alkaline Phosphatase 61 U/L (45-117); Anion Gap 7 (5-15); BUN 20 mg/dL (7-18); BUN/Creat Ratio 19.4 RATIO (10-20); Calcium,Total 9.1 mg/dL (8.5-10.1); Chloride 103 mmol/L (98-107); Creatinine, Serum 1.03 mg/dL (0.70-1.30); EST Glomerular Filtration Rate 85 mL/min (>60); Est Glom Filt Rate - Afr Amer 103 mL/min (>60); Globulin 4.1 g/dL (2.2-4.2); Glucose 97 mg/dL (74-106); Protein, Total 8.2 g/dL (6.4-8.2); Sodium Level 135 mmol/L (136-145); Thyroid Stim Hormone (TSH) 0.91 uIU/mL (0.358-3.74)
== END ==
LOC: POLAB3 15:06
PROVIDERS: PCP Family Medicine Geriatric Medicine; Visit Provider Family Medicine Geriatric Medicine
DX: I10 Essential (primary) hypertension (principal)
CPT/HCPCS: 36415; 80053; 84443; 85025